=== PATIENT | female | born 1990 | race Caucasian/White ===

== ENCOUNTER 2017-05-20 06:50 | Emergency (ER) | payer MEDICAID ==
[~2017-05-20] VITALS: Ht 172.7 cm; Wt 80.6 kg
[~2017-05-20 06:50] MED LIST: DOCU-30 PO; HYDR-3240 PO; IBUP-1222 PO
[2017-05-20 06:51] VITALS: BP 126/92
== END 2017-05-20 08:01 | disposition home or self-care (01) ==
LOC: ED 07:38
DX: L02.415 Cutaneous abscess of right lower limb (principal)
CPT/HCPCS: 99283